=== PATIENT | female | born 1960 | race Caucasian/White ===

== ENCOUNTER 2016-07-17 17:25 | Inpatient (IN) | payer MEDICARE ==
[~2016-07-17] VITALS: Ht 157.5 cm; Wt 75.7 kg
[~2016-07-17 17:25] MED LIST: HYDR50TA3 PO; LEVO25TA7 PO; LOSA1TAB35 PO; OMEP20CA10 PO; POTA20TA83 PO; ZOLP10TA2 PO
[2016-07-17] MEDS ORDERED: IV NS 0.9% 1,000 ML BAG IV ONE (19:00)
[2016-07-17] MEDS ORDERED: VANCOMYCIN 1 GM in IV D5W 250 ML IV ONE (19:00)
[2016-07-17] MEDS ORDERED: PIPERACILLIN /TAZOBACTAM 3.375 G in IV D5W 50 ML IV ONE (19:00)
[2016-07-17] MEDS ORDERED: MORPHINE SULFATE INJ 4 MG/ML DISP.SYRIN ONE ×2 (19:14→22:25)
[2016-07-17] MEDS ORDERED: IV SET PRIMARY PUMP SET 1 EA INFUS.SET MC ONE (19:15)
[2016-07-17] MEDS ORDERED: ONDANSETRON HCL/PF 4 MG/2 ML VIAL ONE (19:15)
[2016-07-17] MEDS ORDERED: IV NS 0.9% 1,000 ML ONE (19:15)
[2016-07-17] MEDS ORDERED: HYDROMORPHONE 1 MG/1 ML DISP.SYRIN ONE (19:20)
[2016-07-17 19:25] LABS: BASOPHILS # (AUTO) 0.2 /CMM (0.0-0.2); BASOPHILS % (AUTO) 1.4 % (0.0-2.0); DIFF TOTAL % 100 %; EOSINOPHILS # (AUTO) 0.1 /CMM (0.0-0.7); HEMATOCRIT 28 % (33-45); LYMPHOCYTES % (AUTO) 14.8 % (20.0-44.0); MEAN CORPUSCULAR HEMOGLOBIN 24 PG (26.0-33.0); MEAN CORPUSCULAR HGB CONC 32 g/dl (31.0-36.0); MEAN CORPUSCULAR VOLUME 75 fL (82-100); MONOCYTES # (AUTO) 0.6 /CMM (0.1-1.30); MONOCYTES % (AUTO) 4.5 % (2.0-12.0); NEUTROPHILS # (AUTO) 10.5 /CMM (1.8-8.9); NEUTROPHILS % (AUTO) 78.3 % (43.0-81.0); PLATELET COUNT (AUTO) 628 /CMM (150-450); RED BLOOD CELL COUNT(AUTO) 3.75 MIL/uL (4.0-5.2); WHITE BLOOD COUNT (AUTO) 13.4 K/uL (4.3-11.0)
[2016-07-17] MEDS ORDERED: ONDANSETRON HCL/PF 4 MG/2 ML VIAL IVP ONE (19:30)
[2016-07-17] MEDS ORDERED: HYDROMORPHONE INJ 2 MG/ML DISP.SYRIN IV ONE (19:30)
[2016-07-17 19:37] LABS: CALCIUM, SERUM 9.2 mg/dL (8.5-10.1); CREATININE 0.9 mg/dL (0.6-1.3); POTASSIUM 3.7 mmol/L (3.5-5.1)
[2016-07-17] MEDS ORDERED: LORAZEPAM INJ 2 MG/ML VIAL ONE (19:38)
[2016-07-17 19:43] LABS: ALBUMIN 2.9 g/dL (3.4-5.0); BILIRUBIN,DIRECT 0.1 mg/dL (0.0-0.2); BILIRUBIN,TOTAL 0.4 mg/dL (0.2-1.0); INDIRECT BILIRUBIN 0.3 mg/dL (0.0-1.1); TOTAL PROTEIN, SERUM 8.2 g/dL (6.4-8.2)
[2016-07-17] MEDS ORDERED: LORAZEPAM INJ 2 MG/ML VIAL IV ONE (20:00)
[2016-07-17 20:05] LABS: LACTIC ACID 0.7 mmol/L (0.4-2.0)
[2016-07-17 21:00] VITALS: BP_SYST 160; BP_SYST 175; BP_DIAS 118; BP_DIAS 90
[2016-07-17 22:00] VITALS: BP 160/95
[2016-07-17] MEDS ORDERED: MAGNESIUM HYDROXIDE 30 ML UDC PO PRN (22:00)
[2016-07-17] MEDS ORDERED: Z GUARD REMEDY 2 OZ OINT TP PRN (22:00)
[2016-07-17] MEDS ORDERED: MORPHINE SULFATE INJ 2 MG/ML DISP.SYRIN IV PRN ×2 (22:00→23:00)
[2016-07-17] MEDS ORDERED: ZOLPIDEM TARTRATE 5 MG TABLET PO PRN (22:00)
[2016-07-17] MEDS ORDERED: ONDANSETRON HCL/PF 4 MG/2 ML VIAL IVP PRN (22:00)
[2016-07-17] MEDS ORDERED: MAG HYDROX/AL HYDROX/SIMETH 30 ML UDC PO PRN (22:00)
[2016-07-17] MEDS ORDERED: ENOXAPARIN SODIUM 40 MG/0.4 ML DISP.SYRIN SQ ONE (22:25)
[2016-07-17] MEDS: ENOXAPARIN SODIUM 40 MG/0.4 ML DISP.SYRIN SQ SCH (22:33)
[2016-07-17] MEDS ORDERED: HYDROCODONE/APAP 5/325MG 1 EACH TABLET ONE (23:51)
[2016-07-17] MEDS ORDERED: ZOLPIDEM TARTRATE 5 MG TABLET ONE (23:52)
[2016-07-17] MEDS: HYDROCODONE/APAP 5/325MG 1 EACH TABLET PO PRN (23:58)
[2016-07-18] MEDS ORDERED: HYDROMORPHONE 1 MG/1 ML DISP.SYRIN ONE ×2 (01:02→04:44)
[2016-07-18] MEDS: HYDROMORPHONE 1 MG/1 ML DISP.SYRIN IV PRN ×5 (01:07→21:02)
[2016-07-18] MEDS ORDERED: PIPERACILLIN /TAZOBACTAM 3.375 G VIAL IV ONE (04:43)
[2016-07-18] MEDS ORDERED: IV D5W 100 ML IV ONE (04:43)
[2016-07-18] MEDS ORDERED: hydrALAZINE HCL 10 MG TABLET ONE (04:44)
[2016-07-18] MEDS ORDERED: SECONDARY IV SET 1 EA INFUS.SET MC ONE ×2 (04:48→12:16)
[2016-07-18] MEDS ORDERED: IV SET PRIMARY PUMP SET 1 EA INFUS.SET MC ONE (04:48)
[2016-07-18] MEDS ORDERED: IV NS 0.9% 250 ML IV ONE (04:49)
[2016-07-18] MEDS ORDERED: hydrALAZINE HCL 10 MG TABLET PO PRN (05:00)
[2016-07-18] MEDS ORDERED: PIPERACILLIN /TAZOBACTAM 3.375 G in IV D5W 100 ML IV SCH (05:00)
[2016-07-18 07:19] LABS: BASOPHILS # (AUTO) 0.1 /CMM (0.0-0.2); BASOPHILS % (AUTO) 1.2 % (0.0-2.0); DIFF TOTAL % 100 %; EOSINOPHILS # (AUTO) 0.1 /CMM (0.0-0.7); EOSINOPHILS % (AUTO) 1.2 % (0.0-6.0); HEMATOCRIT 27 % (33-45); HEMOGLOBIN 8.7 g/dL (11.5-14.8); LYMPHOCYTES # (AUTO) 1.2 /CMM (0.8-4.8); LYMPHOCYTES % (AUTO) 11.8 % (20.0-44.0); MEAN CORPUSCULAR HEMOGLOBIN 24 PG (26.0-33.0); MEAN CORPUSCULAR HGB CONC 32 g/dl (31.0-36.0); MEAN CORPUSCULAR VOLUME 75 fL (82-100); MONOCYTES # (AUTO) 0.4 /CMM (0.1-1.30); NEUTROPHILS # (AUTO) 8.6 /CMM (1.8-8.9); NEUTROPHILS % (AUTO) 81.8 % (43.0-81.0); PLATELET COUNT (AUTO) 567 /CMM (150-450); RED BLOOD CELL COUNT(AUTO) 3.61 MIL/uL (4.0-5.2); WHITE BLOOD COUNT (AUTO) 10.5 K/uL (4.3-11.0)
[2016-07-18 07:51] LABS: ALBUMIN 2.5 g/dL (3.4-5.0); BILIRUBIN,TOTAL 0.3 mg/dL (0.2-1.0); CALCIUM, SERUM 8.8 mg/dL (8.5-10.1); CREATININE 0.7 mg/dL (0.6-1.3); PHOSPHORUS 3.1 mg/dL (2.5-4.9); POTASSIUM 3.4 mmol/L (3.5-5.1); TOTAL PROTEIN, SERUM 7.6 g/dL (6.4-8.2)
[2016-07-18 08:00] VITALS: BP 172/109
[2016-07-18] MEDS: HYDROCODONE/APAP 5/325MG 1 EACH TABLET PO PRN ×4 (08:22→23:14)
[2016-07-18] MEDS: IV NS 0.9% 1,000 ML IV PRN (08:23)
[2016-07-18] MEDS: PANTOPRAZOLE 40 MG TABLET.DR PO SCH (08:23)
[2016-07-18] MEDS: POTASSIUM CHLORIDE 20 MEQ TAB.PRT.SR PO SCH ×2 (08:24→17:55)
[2016-07-18] MEDS: LEVOTHYROXINE SODIUM 25 MCG TABLET PO SCH (08:24)
[2016-07-18] MEDS ORDERED: FEE PK DOSING 1 MIN EA MC ONE (10:15)
[2016-07-18] MEDS: HYDROCHLOROTHIAZIDE 25 MG TABLET PO SCH (10:45)
[2016-07-18 11:06] LABS: THYROID STIMULATING HORMONE 0.849 uIU/mL (0.358-3.74)
[2016-07-18] MEDS: VANCOMYCIN 1 GM in IV D5W 250 ML IV SCH (12:12)
[2016-07-18] MEDS ORDERED: TRIA1TAB5 PO (12:33)
[2016-07-18] MEDS ORDERED: LOSA1TAB39 PO (12:34)
[2016-07-18] MEDS ORDERED: VENL37.55 PO (12:35)
[2016-07-18] MEDS ORDERED: POTA20TA83 PO (12:36)
[2016-07-18] MEDS ORDERED: LEVO125T8 PO (12:37)
[2016-07-18] MEDS ORDERED: DOCU-25 PO (12:41)
[2016-07-18] MEDS ORDERED: [UNRECOGNIZED DRUG - CODE] PO (12:42)
[2016-07-18] MEDS: PIPERACILLIN /TAZOBACTAM 3.375 G in IV D5W 50 ML IV SCH ×3 (14:26→23:14)
[2016-07-18] MEDS: CADEXOMER IODINE 40 GM TUBE TP SCH (14:27)
[2016-07-18 16:00] VITALS: BP 164/92
[2016-07-18] MEDS: LOSARTAN/HCTZ 50-12.5MG/ 1 EA TABLET PO SCH (16:24)
[2016-07-18] MEDS ORDERED: ZOLPIDEM TARTRATE 10 MG TABLET PO SCH (18:00)
[2016-07-18 20:00] VITALS: BP 152/97
[2016-07-18] MEDS: ENOXAPARIN SODIUM 40 MG/0.4 ML DISP.SYRIN SQ SCH (21:03)
[2016-07-19] MEDS: VANCOMYCIN 1 GM in IV D5W 250 ML IV SCH ×2 (00:11→10:45)
[2016-07-19] MEDS: ZOLPIDEM TARTRATE 10 MG TABLET PO PRN (00:26)
[2016-07-19] MEDS: HYDROMORPHONE 1 MG/1 ML DISP.SYRIN IV PRN ×4 (03:21→20:24)
[2016-07-19] MEDS: HYDROCODONE/APAP 5/325MG 1 EACH TABLET PO PRN ×3 (04:24→13:13)
[2016-07-19] MEDS: PIPERACILLIN /TAZOBACTAM 3.375 G in IV D5W 50 ML IV SCH ×3 (06:05→18:18)
[2016-07-19] MEDS: ACETAMINOPHEN 325 MG TABLET PO PRN (06:06)
[2016-07-19] MEDS: IV NS 0.9% 1,000 ML IV PRN (06:12)
[2016-07-19 07:31] LABS: CALCIUM, SERUM 8.8 mg/dL (8.5-10.1); CREATININE 0.7 mg/dL (0.6-1.3); POTASSIUM 3.5 mmol/L (3.5-5.1)
[2016-07-19 08:00] VITALS: BP 170/96
[2016-07-19 08:10] VITALS: BP 170/96
[2016-07-19] MEDS: POTASSIUM CHLORIDE 20 MEQ TAB.PRT.SR PO SCH ×2 (08:12→16:51)
[2016-07-19] MEDS: PANTOPRAZOLE 40 MG TABLET.DR PO SCH (08:12)
[2016-07-19] MEDS: LEVOTHYROXINE SODIUM 25 MCG TABLET PO SCH (08:12)
[2016-07-19] MEDS: HYDROCHLOROTHIAZIDE 25 MG TABLET PO SCH (08:13)
[2016-07-19] MEDS: LOSARTAN/HCTZ 50-12.5MG/ 1 EA TABLET PO SCH (08:13)
[2016-07-19] MEDS: CADEXOMER IODINE 40 GM TUBE TP SCH (08:14)
[2016-07-19 16:00] VITALS: BP 162/91
[2016-07-19] MEDS ORDERED: NORTRIPTYLINE HCL 10 MG CAPSULE PO SCH (16:00)
[2016-07-19] MEDS ORDERED: SECONDARY IV SET 1 EA INFUS.SET MC ONE (16:42)
[2016-07-19] MEDS: LACTOBACILLUS RHAMNOSUS GG 1 EACH CAP.SPRINK PO SCH (16:50)
[2016-07-19] MEDS: PREGABALIN 25 MG CAPSULE PO SCH (16:50)
[2016-07-19] MEDS: SOD FERRIC GLUC 125 MG in IV NS 0.9% 100 ML IV SCH (16:51)
[2016-07-19] MEDS: ALPRAZOLAM 0.25 MG TABLET PO SCH (16:55)
[2016-07-19 20:00] VITALS: BP 147/90
[2016-07-19] MEDS: ENOXAPARIN SODIUM 40 MG/0.4 ML DISP.SYRIN SQ SCH (22:00)
[2016-07-19] MEDS: NORTRIPTYLINE HCL 10 MG CAPSULE PO SCH (22:03)
[2016-07-19] MEDS: oxyCODONE/APAP (5/325 MG) 1 UDTAB TABLET PO PRN (22:05)
[2016-07-20] MEDS: VANCOMYCIN 1 GM in IV D5W 250 ML IV SCH ×3 (00:04→23:52)
[2016-07-20] MEDS: HYDROMORPHONE 1 MG/1 ML DISP.SYRIN IV PRN ×4 (00:26→17:42)
[2016-07-20] MEDS: PIPERACILLIN /TAZOBACTAM 3.375 G in IV D5W 50 ML IV SCH ×4 (01:32→19:04)
[2016-07-20] MEDS: oxyCODONE IR immediate release 5 MG CAPSULE PO PRN (05:35)
[2016-07-20] MEDS: IV NS 0.9% 1,000 ML IV PRN (05:44)
[2016-07-20 07:49] LABS: CALCIUM, SERUM 9.2 mg/dL (8.5-10.1); CREATININE 0.8 mg/dL (0.6-1.3); POTASSIUM 3.6 mmol/L (3.5-5.1)
[2016-07-20 08:00] VITALS: BP 167/88
[2016-07-20] MEDS: PREGABALIN 25 MG CAPSULE PO SCH ×2 (09:00→17:28)
[2016-07-20] MEDS: POTASSIUM CHLORIDE 20 MEQ TAB.PRT.SR PO SCH ×2 (09:00→17:28)
[2016-07-20] MEDS: ALPRAZOLAM 0.25 MG TABLET PO SCH ×2 (09:00→17:00)
[2016-07-20] MEDS ORDERED: VENLAFAXINE XR 37.5 MG CAP.SR.24H PO SCH (09:00)
[2016-07-20] MEDS: LACTOBACILLUS RHAMNOSUS GG 1 EACH CAP.SPRINK PO SCH ×2 (09:00→17:28)
[2016-07-20] MEDS: CADEXOMER IODINE 40 GM TUBE TP SCH (09:00)
[2016-07-20] MEDS: LOSARTAN/HCTZ 50-12.5MG/ 1 EA TABLET PO SCH (09:28)
[2016-07-20 10:00] VITALS: BP 167/88
[2016-07-20] MEDS ORDERED: HYDROMORPHONE 1 MG/1 ML DISP.SYRIN IV ONE (11:00)
[2016-07-20] MEDS ORDERED: FENTANYL PF 100MCG/2ML AMPUL ONE (11:11)
[2016-07-20] MEDS ORDERED: MIDAZOLAM HCL 2 MG/2ML VIAL ONE (11:11)
[2016-07-20] MEDS ORDERED: KETAMINE HCL (500MG/10ML) 50 MG/ML VIAL ONE (11:12)
[2016-07-20] MEDS ORDERED: BUPIVACAINE MPF 0.5% W/EPI INJ 30 ML VIAL ONE (11:32)
[2016-07-20] MEDS ORDERED: POVIDONE-IODINE OINT 28.4 GM TUBE ONE (12:38)
[2016-07-20] MEDS ORDERED: HYDROMORPHONE INJ 2 MG/ML DISP.SYRIN ONE (12:51)
[2016-07-20 13:30] VITALS: BP 141/86
[2016-07-20] MEDS: LEVOTHYROXINE SODIUM 25 MCG TABLET PO SCH (13:56)
[2016-07-20] MEDS: PANTOPRAZOLE 40 MG TABLET.DR PO SCH (13:56)
[2016-07-20] MEDS: HYDROCHLOROTHIAZIDE 25 MG TABLET PO SCH (13:57)
[2016-07-20] MEDS ORDERED: SOD FERRIC GLUC 125 MG in IV NS 0.9% 100 ML IV SCH (14:00)
[2016-07-20] MEDS: oxyCODONE/APAP (5/325 MG) 1 UDTAB TABLET PO PRN ×2 (14:18→21:43)
[2016-07-20] MEDS ORDERED: ANESTHESIA TRAY IN PYXIS 1 EA TRAY MC ONE (15:06)
[2016-07-20] MEDS: SOD FERRIC GLUC 125 MG in IV NS 0.9% 100 ML IV SCH (15:54)
[2016-07-20 16:11] VITALS: BP 123/70
[2016-07-20 18:00] VITALS: BP 123/70
[2016-07-20 20:21] VITALS: BP 124/74
[2016-07-20] MEDS: ZOLPIDEM TARTRATE 10 MG TABLET PO PRN (21:42)
[2016-07-20] MEDS: NORTRIPTYLINE HCL 10 MG CAPSULE PO SCH (21:43)
[2016-07-20] MEDS: ENOXAPARIN SODIUM 40 MG/0.4 ML DISP.SYRIN SQ SCH (21:44)
[2016-07-21] MEDS: PIPERACILLIN /TAZOBACTAM 3.375 G in IV D5W 50 ML IV SCH ×3 (00:57→13:08)
[2016-07-21] MEDS: HYDROMORPHONE 1 MG/1 ML DISP.SYRIN IV PRN ×5 (03:05→20:48)
[2016-07-21] MEDS: oxyCODONE/APAP (5/325 MG) 1 UDTAB TABLET PO PRN ×2 (06:51→15:25)
[2016-07-21 08:00] VITALS: BP_SYST 163; BP_DIAS 90; BP_DIAS 94
[2016-07-21 08:01] LABS: CALCIUM, SERUM 8.9 mg/dL (8.5-10.1); CREATININE 0.9 mg/dL (0.6-1.3); POTASSIUM 4.4 mmol/L (3.5-5.1)
[2016-07-21] MEDS: LACTOBACILLUS RHAMNOSUS GG 1 EACH CAP.SPRINK PO SCH ×2 (08:56→17:22)
[2016-07-21] MEDS: POTASSIUM CHLORIDE 20 MEQ TAB.PRT.SR PO SCH ×2 (08:56→17:23)
[2016-07-21] MEDS: LEVOTHYROXINE SODIUM 25 MCG TABLET PO SCH (08:56)
[2016-07-21] MEDS: PANTOPRAZOLE 40 MG TABLET.DR PO SCH (08:57)
[2016-07-21] MEDS: PREGABALIN 25 MG CAPSULE PO SCH ×2 (08:57→17:22)
[2016-07-21] MEDS: LOSARTAN/HCTZ 50-12.5MG/ 1 EA TABLET PO SCH (08:58)
[2016-07-21] MEDS: HYDROCHLOROTHIAZIDE 25 MG TABLET PO SCH (08:58)
[2016-07-21] MEDS: CADEXOMER IODINE 40 GM TUBE TP SCH (08:59)
[2016-07-21] MEDS: ALPRAZOLAM 0.25 MG TABLET PO SCH ×2 (08:59→17:24)
[2016-07-21] MEDS: oxyCODONE IR immediate release 5 MG CAPSULE PO PRN ×4 (09:06→22:20)
[2016-07-21] MEDS: VANCOMYCIN 1 GM in IV D5W 250 ML IV SCH ×2 (11:42→23:19)
[2016-07-21] MEDS ORDERED: SECONDARY IV SET 1 EA INFUS.SET MC ONE ×2 (11:45→15:25)
[2016-07-21] MEDS: SOD FERRIC GLUC 125 MG in IV NS 0.9% 100 ML IV SCH (15:22)
[2016-07-21 16:00] VITALS: BP 161/93
[2016-07-21] MEDS: ACETAMINOPHEN 325 MG TABLET PO PRN (16:25)
[2016-07-21] MEDS: LEVOFLOXACIN (500MG) 500 MG TABLET PO SCH (20:20)
[2016-07-21 22:02] VITALS: BP 144/79
[2016-07-21] MEDS: NORTRIPTYLINE HCL 25 MG CAPSULE PO SCH (22:15)
[2016-07-21] MEDS: ENOXAPARIN SODIUM 40 MG/0.4 ML DISP.SYRIN SQ SCH (22:18)
[2016-07-22] MEDS: HYDROMORPHONE 1 MG/1 ML DISP.SYRIN IV PRN ×4 (00:40→17:33)
[2016-07-22] MEDS: oxyCODONE IR immediate release 5 MG CAPSULE PO PRN ×4 (02:43→20:03)
[2016-07-22 08:00] VITALS: BP 142/88
[2016-07-22 08:00] LABS: CALCIUM, SERUM 9.2 mg/dL (8.5-10.1); CREATININE 0.8 mg/dL (0.6-1.3); POTASSIUM 3.7 mmol/L (3.5-5.1)
[2016-07-22] MEDS: ALBUTEROL FS 2.5 MG/3 ML VIAL.NEB NEB PRN (08:20)
[2016-07-22] MEDS: LEVOTHYROXINE SODIUM 25 MCG TABLET PO SCH (08:49)
[2016-07-22] MEDS: LACTOBACILLUS RHAMNOSUS GG 1 EACH CAP.SPRINK PO SCH ×2 (08:49→16:20)
[2016-07-22] MEDS: PREGABALIN 25 MG CAPSULE PO SCH ×2 (08:50→16:19)
[2016-07-22] MEDS: POTASSIUM CHLORIDE 20 MEQ TAB.PRT.SR PO SCH ×2 (08:50→16:20)
[2016-07-22] MEDS: PANTOPRAZOLE 40 MG TABLET.DR PO SCH (08:50)
[2016-07-22] MEDS: HYDROCHLOROTHIAZIDE 25 MG TABLET PO SCH (08:50)
[2016-07-22] MEDS: LOSARTAN/HCTZ 50-12.5MG/ 1 EA TABLET PO SCH (08:51)
[2016-07-22] MEDS: ALPRAZOLAM 0.25 MG TABLET PO SCH ×2 (08:53→16:19)
[2016-07-22] MEDS: CADEXOMER IODINE 40 GM TUBE TP SCH (08:54)
[2016-07-22] MEDS: ACETAMINOPHEN 325 MG TABLET PO PRN ×2 (10:20→17:15)
[2016-07-22] MEDS: VANCOMYCIN 1 GM in IV D5W 250 ML IV SCH ×2 (10:20→23:56)
[2016-07-22] MEDS: DOCUSATE SODIUM 250 MG CAPSULE PO SCH ×2 (11:09→16:19)
[2016-07-22] MEDS: SOD FERRIC GLUC 125 MG in IV NS 0.9% 100 ML IV SCH (14:46)
[2016-07-22 16:00] VITALS: BP_SYST 143; BP_DIAS 83; BP_DIAS 89
[2016-07-22 20:00] VITALS: BP 148/76
[2016-07-22] MEDS: NORTRIPTYLINE HCL 25 MG CAPSULE PO SCH (21:12)
[2016-07-22] MEDS: LEVOFLOXACIN (500MG) 500 MG TABLET PO SCH (21:12)
[2016-07-22] MEDS: ENOXAPARIN SODIUM 40 MG/0.4 ML DISP.SYRIN SQ SCH (21:21)
[2016-07-23] MEDS: oxyCODONE IR immediate release 5 MG CAPSULE PO PRN ×3 (01:04→21:20)
[2016-07-23] MEDS: HYDROMORPHONE 1 MG/1 ML DISP.SYRIN IV PRN ×4 (04:29→23:59)
[2016-07-23] MEDS: ALBUTEROL FS 2.5 MG/3 ML VIAL.NEB NEB PRN ×3 (05:24→16:12)
[2016-07-23 08:00] VITALS: BP 145/102
[2016-07-23 08:04] LABS: CALCIUM, SERUM 8.9 mg/dL (8.5-10.1); CREATININE 0.8 mg/dL (0.6-1.3); POTASSIUM 3.5 mmol/L (3.5-5.1)
[2016-07-23] MEDS: PANTOPRAZOLE 40 MG TABLET.DR PO SCH (08:51)
[2016-07-23] MEDS: PREGABALIN 25 MG CAPSULE PO SCH ×2 (08:51→17:00)
[2016-07-23] MEDS: DOCUSATE SODIUM 250 MG CAPSULE PO SCH ×2 (08:51→17:00)
[2016-07-23] MEDS: LACTOBACILLUS RHAMNOSUS GG 1 EACH CAP.SPRINK PO SCH ×2 (08:51→17:00)
[2016-07-23] MEDS: HYDROCHLOROTHIAZIDE 25 MG TABLET PO SCH (08:52)
[2016-07-23] MEDS: POTASSIUM CHLORIDE 20 MEQ TAB.PRT.SR PO SCH ×2 (08:52→17:00)
[2016-07-23] MEDS: LEVOTHYROXINE SODIUM 25 MCG TABLET PO SCH (08:53)
[2016-07-23] MEDS: LOSARTAN/HCTZ 50-12.5MG/ 1 EA TABLET PO SCH (08:53)
[2016-07-23] MEDS: CADEXOMER IODINE 40 GM TUBE TP SCH (09:00)
[2016-07-23] MEDS: ALPRAZOLAM 0.25 MG TABLET PO SCH ×2 (09:06→17:00)
[2016-07-23] MEDS: VANCOMYCIN 1 GM in IV D5W 250 ML IV SCH ×2 (12:42→23:57)
[2016-07-23] MEDS: SOD FERRIC GLUC 125 MG in IV NS 0.9% 100 ML IV SCH (14:42)
[2016-07-23 16:00] VITALS: BP 114/81
[2016-07-23 20:00] VITALS: BP 128/67
[2016-07-23] MEDS: LEVOFLOXACIN (500MG) 500 MG TABLET PO SCH (21:19)
[2016-07-23] MEDS: NORTRIPTYLINE HCL 25 MG CAPSULE PO SCH (21:19)
[2016-07-23] MEDS: ENOXAPARIN SODIUM 40 MG/0.4 ML DISP.SYRIN SQ SCH (21:21)
[2016-07-24] MEDS: oxyCODONE IR immediate release 5 MG CAPSULE PO PRN ×3 (01:34→20:14)
[2016-07-24] MEDS: oxyCODONE/APAP (5/325 MG) 1 UDTAB TABLET PO PRN ×3 (02:48→17:03)
[2016-07-24] MEDS: HYDROMORPHONE 1 MG/1 ML DISP.SYRIN IV PRN ×4 (04:53→22:20)
[2016-07-24 07:53] LABS: BASOPHILS % (AUTO) 0.1 % (0.0-2.0); DIFF TOTAL % 100 %; EOSINOPHILS # (AUTO) 0.1 /CMM (0.0-0.7); EOSINOPHILS % (AUTO) 2.5 % (0.0-6.0); HEMATOCRIT 27 % (33-45); HEMOGLOBIN 8.4 g/dL (11.5-14.8); LYMPHOCYTES # (AUTO) 0.8 /CMM (0.8-4.8); LYMPHOCYTES % (AUTO) 14.4 % (20.0-44.0); MEAN CORPUSCULAR HEMOGLOBIN 23 PG (26.0-33.0); MEAN CORPUSCULAR HGB CONC 31 g/dl (31.0-36.0); MEAN CORPUSCULAR VOLUME 75 fL (82-100); MONOCYTES # (AUTO) 0.5 /CMM (0.1-1.30); MONOCYTES % (AUTO) 9.3 % (2.0-12.0); NEUTROPHILS % (AUTO) 73.7 % (43.0-81.0); PLATELET COUNT (AUTO) 491 /CMM (150-450); RED BLOOD CELL COUNT(AUTO) 3.58 MIL/uL (4.0-5.2); WHITE BLOOD COUNT (AUTO) 5.4 K/uL (4.3-11.0)
[2016-07-24 08:00] VITALS: BP 140/66
[2016-07-24 08:22] LABS: CALCIUM, SERUM 8.4 mg/dL (8.5-10.1); CREATININE 0.9 mg/dL (0.6-1.3)
[2016-07-24 08:37] VITALS: BP 140/66
[2016-07-24] MEDS: ALPRAZOLAM 0.25 MG TABLET PO SCH ×2 (09:00→17:03)
[2016-07-24] MEDS: CADEXOMER IODINE 40 GM TUBE TP SCH (09:00)
[2016-07-24] MEDS: POTASSIUM CHLORIDE 20 MEQ TAB.PRT.SR PO SCH ×2 (09:29→17:02)
[2016-07-24] MEDS: DOCUSATE SODIUM 250 MG CAPSULE PO SCH ×2 (09:29→17:02)
[2016-07-24] MEDS: PREGABALIN 25 MG CAPSULE PO SCH ×2 (09:29→17:02)
[2016-07-24] MEDS: LACTOBACILLUS RHAMNOSUS GG 1 EACH CAP.SPRINK PO SCH ×2 (09:29→17:02)
[2016-07-24] MEDS: PANTOPRAZOLE 40 MG TABLET.DR PO SCH (09:29)
[2016-07-24] MEDS: LEVOTHYROXINE SODIUM 25 MCG TABLET PO SCH (09:29)
[2016-07-24] MEDS: HYDROCHLOROTHIAZIDE 25 MG TABLET PO SCH (09:30)
[2016-07-24] MEDS: LOSARTAN/HCTZ 50-12.5MG/ 1 EA TABLET PO SCH (09:30)
[2016-07-24] MEDS: VANCOMYCIN 1 GM in IV D5W 250 ML IV SCH (11:42)
[2016-07-24] MEDS ORDERED: POTASSIUM CHLORIDE 20 MEQ POWDER PACKET PO ONE (12:00)
[2016-07-24 16:00] VITALS: BP_SYST 155; BP_DIAS 86; BP_DIAS 88
[2016-07-24] MEDS: ACETAMINOPHEN 325 MG TABLET PO PRN (17:02)
[2016-07-24 20:00] VITALS: BP 127/74
[2016-07-24] MEDS: LEVOFLOXACIN (500MG) 500 MG TABLET PO SCH (20:13)
[2016-07-24] MEDS: NORTRIPTYLINE HCL 25 MG CAPSULE PO SCH (22:19)
[2016-07-24] MEDS: ENOXAPARIN SODIUM 40 MG/0.4 ML DISP.SYRIN SQ SCH (22:20)
[2016-07-25] MEDS: VANCOMYCIN 1 GM in IV D5W 250 ML IV SCH ×2 (00:21→10:56)
[2016-07-25] MEDS: oxyCODONE/APAP (5/325 MG) 1 UDTAB TABLET PO PRN ×2 (00:22→18:16)
[2016-07-25] MEDS: oxyCODONE IR immediate release 5 MG CAPSULE PO PRN ×3 (03:06→16:09)
[2016-07-25] MEDS: HYDROMORPHONE 1 MG/1 ML DISP.SYRIN IV PRN ×2 (07:17→14:23)
[2016-07-25 08:00] VITALS: BP 128/87
[2016-07-25] MEDS: PANTOPRAZOLE 40 MG TABLET.DR PO SCH (08:48)
[2016-07-25] MEDS: PREGABALIN 25 MG CAPSULE PO SCH ×2 (08:48→18:14)
[2016-07-25] MEDS: DOCUSATE SODIUM 250 MG CAPSULE PO SCH ×2 (08:48→18:14)
[2016-07-25] MEDS: LACTOBACILLUS RHAMNOSUS GG 1 EACH CAP.SPRINK PO SCH ×2 (08:48→18:14)
[2016-07-25] MEDS: ALPRAZOLAM 0.25 MG TABLET PO SCH ×2 (08:49→18:14)
[2016-07-25] MEDS: HYDROCHLOROTHIAZIDE 25 MG TABLET PO SCH (08:49)
[2016-07-25] MEDS: POTASSIUM CHLORIDE 20 MEQ TAB.PRT.SR PO SCH ×2 (08:49→18:14)
[2016-07-25] MEDS: LEVOTHYROXINE SODIUM 25 MCG TABLET PO SCH (08:49)
[2016-07-25] MEDS: LOSARTAN/HCTZ 50-12.5MG/ 1 EA TABLET PO SCH (08:50)
[2016-07-25] MEDS: CADEXOMER IODINE 40 GM TUBE TP SCH (08:50)
[2016-07-25] MEDS ORDERED: POTASSIUM CHLORIDE 20 MEQ TAB.PRT.SR PO ONE (13:30)
[2016-07-25] MEDS ORDERED: LACT1CAP72 PO (13:40)
[2016-07-25] MEDS ORDERED: Nortriptyline Hcl PO (13:40)
[2016-07-25] MEDS ORDERED: OXYC1TAB8 PO (13:40)
[2016-07-25] MEDS ORDERED: Oxycodone Hcl PO (13:40)
[2016-07-25] MEDS ORDERED: PREG25CA PO (13:40)
[2016-07-25 16:10] VITALS: BP 133/82
[2016-07-25] MEDS ORDERED: LEVO500T15 PO (16:54)
== END 2016-07-25 19:01 | DRG 579 ==
LOC: EDUNIT# 17:25 → ER 17:27 → MED 20:37
PROVIDERS: ADMIT Family Medicine; ATTEND Family Medicine
PROC: 0QBQ0ZZ Excision of Right Toe Phalanx, Open Approach (ICD-10-PCS; principal; 2016-07-18)
PROC: 05H633Z Insertion of Infusion Device into Left Subclavian Vein, Percutaneous Approach (ICD-10-PCS; 2016-07-19)
PROC: 0Y6P0Z3 Detachment at Right 1st Toe, Low, Open Approach (ICD-10-PCS; 2016-07-20)
DX: L03.031 Cellulitis of right toe (principal); E43 Unspecified severe protein-calorie malnutrition; M86.179 Other acute osteomyelitis, unspecified ankle and foot; Z86.14 Personal history of Methicillin resistant Staphylococcus aureus infection; Z89.512 Acquired absence of left leg below knee; I25.10 Atherosclerotic heart disease of native coronary artery without angina pectoris; Q05.9 Spina bifida, unspecified; M79.7 Fibromyalgia; E87.6 Hypokalemia; I10 Essential (primary) hypertension; B95.62 Methicillin resistant Staphylococcus aureus infection as the cause of diseases classified elsewhere; E78.5 Hyperlipidemia, unspecified; M19.90 Unspecified osteoarthritis, unspecified site; D64.9 Anemia, unspecified; D47.3 Essential (hemorrhagic) thrombocythemia; Z68.30 Body mass index [BMI] 30.0-30.9, adult; G89.4 Chronic pain syndrome; K59.09 Other constipation; F32.9 Major depressive disorder, single episode, unspecified; E03.9 Hypothyroidism, unspecified; E66.9 Obesity, unspecified; L97.519 Non-pressure chronic ulcer of other part of right foot with unspecified severity
CPT/HCPCS: 36415; 36569; 71010-TC; 73110; 73630-TC; 73718-TC; 80048-TC; 80053-TC; 80076-TC; 80202-TC; 83540-TC; 83605-TC; 83735-TC; 84100-TC; 84443-TC; 85025-TC; 87040-TC; 87070-TC; 87075-TC; 87081-TC; 87186-TC; 88304-TC; 88305-TC; 88311-TC; 88312-TC; 97001-TC; 97110-TC; 97530-TC; A4606; A6402; A6403; J1170; J1650; J2060; J2250; J2270; J2405; J2543; J2916; J3010; J3370; J3490; J7030; J7050; J7060; Z7610

== ENCOUNTER 2016-07-28 09:10 | Outpatient (CLI) | payer MEDICARE ==
[~2016-07-28 09:10] MED LIST changes: +DOCU-25 PO; -HYDR50TA3 PO; +LACT1CAP72 PO; +LEVO125T8 PO; -LEVO25TA7 PO; +LEVO500T15 PO; -LOSA1TAB35 PO; +LOSA1TAB39 PO; +Nortriptyline Hcl PO; +OXYC-28 PO; +OXYC1TAB8 PO; +Oxycodone Hcl PO; +PREG25CA PO; +TRIA1TAB5 PO; +VENL37.55 PO
== END 2016-07-28 23:59 ==
LOC: WOU 09:10
PROVIDERS: ATTEND Podiatrist Foot & Ankle Surgery
DX: Z47.81 Encounter for orthopedic aftercare following surgical amputation (principal); Z89.411 Acquired absence of right great toe; Z87.891 Personal history of nicotine dependence; Z89.512 Acquired absence of left leg below knee; Z98.84 Bariatric surgery status; G90.09 Other idiopathic peripheral autonomic neuropathy; M86.671 Other chronic osteomyelitis, right ankle and foot; M79.641 Pain in right hand; I10 Essential (primary) hypertension
CPT/HCPCS: A6253; A6402; G0463

== ENCOUNTER 2016-07-31 00:46 | Emergency (ER) | payer MEDICARE ==
[~2016-07-31] VITALS: Ht 167.6 cm; Wt 79.4 kg
[2016-07-31] MEDS ORDERED: oxyCODONE/APAP (5/325 MG) 1 UDTAB TABLET ONE (01:47)
[2016-07-31] MEDS ORDERED: oxyCODONE/APAP (5/325 MG) 1 UDTAB TABLET PO ONE (02:00)
[2016-07-31 04:13] VITALS: BP 134/68
== END 2016-07-31 04:13 | disposition home or self-care (01) ==
LOC: ER 00:49
DX: M25.531 Pain in right wrist (principal); G89.4 Chronic pain syndrome; E03.9 Hypothyroidism, unspecified; E66.9 Obesity, unspecified; E78.00 Pure hypercholesterolemia, unspecified; I10 Essential (primary) hypertension; I25.10 Atherosclerotic heart disease of native coronary artery without angina pectoris; Z88.5 Allergy status to narcotic agent; Z88.8 Allergy status to other drugs, medicaments and biological substances; Z91.040 Latex allergy status; Z91.09 Other allergy status, other than to drugs and biological substances
CPT/HCPCS: 73110; A4606; Z7610

== ENCOUNTER 2016-08-03 12:35 | Outpatient (CLI) | payer MEDICARE | END 2016-08-03 23:59 | LOC: WOU 12:35 | PROVIDERS: ATTEND Podiatrist Foot & Ankle Surgery | PROC: 2W3CX1Z Immobilization of Right Lower Arm using Splint (ICD-10-PCS; principal; 2016-08-03) | DX: Z09 Encounter for follow-up examination after completed treatment for conditions other than malignant neoplasm (principal); Z89.411 Acquired absence of right great toe; S63.501D Unspecified sprain of right wrist, subsequent encounter; W19.XXXD Unspecified fall, subsequent encounter; I10 Essential (primary) hypertension; Q05.9 Spina bifida, unspecified; Z89.512 Acquired absence of left leg below knee; G90.09 Other idiopathic peripheral autonomic neuropathy; Z98.84 Bariatric surgery status; K59.00 Constipation, unspecified | CPT/HCPCS: 29125; A6253; A6402; G0463 ==

== ENCOUNTER 2016-09-07 14:55 | Outpatient (CLI) | payer MEDICARE | END 2016-09-07 23:59 | disposition home or self-care (01) | LOC: WOU 14:55 | PROVIDERS: ATTEND Podiatrist Foot & Ankle Surgery | DX: Z09 Encounter for follow-up examination after completed treatment for conditions other than malignant neoplasm (principal); Z89.411 Acquired absence of right great toe; L60.3 Nail dystrophy; G90.09 Other idiopathic peripheral autonomic neuropathy; Z89.512 Acquired absence of left leg below knee; Z87.891 Personal history of nicotine dependence; Z74.09 Other reduced mobility; Q05.9 Spina bifida, unspecified; S63.501D Unspecified sprain of right wrist, subsequent encounter; W19.XXXD Unspecified fall, subsequent encounter | CPT/HCPCS: A6209; G0127; G0463 ==

== ENCOUNTER 2016-10-12 15:10 | Outpatient (CLI) | payer MEDICARE | END 2016-10-12 23:59 | disposition home or self-care (01) | LOC: WOU 15:10 | PROVIDERS: ATTEND Surgery | DX: Z47.81 Encounter for orthopedic aftercare following surgical amputation (principal); Z89.411 Acquired absence of right great toe; G62.9 Polyneuropathy, unspecified; Z89.512 Acquired absence of left leg below knee; L97.513 Non-pressure chronic ulcer of other part of right foot with necrosis of muscle; I10 Essential (primary) hypertension; Z98.84 Bariatric surgery status; Z90.710 Acquired absence of both cervix and uterus; Z90.49 Acquired absence of other specified parts of digestive tract; Z87.891 Personal history of nicotine dependence; Q05.9 Spina bifida, unspecified; Z88.6 Allergy status to analgesic agent; Z91.040 Latex allergy status; S63.501A Unspecified sprain of right wrist, initial encounter; W19.XXXA Unspecified fall, initial encounter; Y92.89 Other specified places as the place of occurrence of the external cause | CPT/HCPCS: 11043; A6402; G0463 ==

== ENCOUNTER 2016-10-19 13:15 | Outpatient (CLI) | payer MEDICARE ==
[2016-10-19 14:30] LABS: BASOPHILS % (AUTO) 0.5 % (0.0-2.0); EOSINOPHILS # (AUTO) 0.1 /CMM (0.0-0.7); EOSINOPHILS % (AUTO) 2.7 % (0.0-6.0); HEMATOCRIT 37 % (33-45); HEMOGLOBIN 12.1 g/dL (11.5-14.8); LYMPHOCYTES # (AUTO) 1.3 /CMM (0.8-4.8); MEAN CORPUSCULAR HEMOGLOBIN 26 PG (26.0-33.0); MEAN CORPUSCULAR HGB CONC 33 g/dl (31.0-36.0); MEAN CORPUSCULAR VOLUME 79 fL (82-100); MONOCYTES # (AUTO) 0.3 /CMM (0.1-1.30); MONOCYTES % (AUTO) 6.7 % (2.0-12.0); NEUTROPHILS # (AUTO) 2.8 /CMM (1.8-8.9); NEUTROPHILS % (AUTO) 62.1 % (43.0-81.0); PLATELET COUNT (AUTO) 389 /CMM (150-450); RDW COEFFICIENT OF VARIATION 16.1 (11.5-15.0); RED BLOOD CELL COUNT(AUTO) 4.68 MIL/uL (4.0-5.2); WHITE BLOOD COUNT (AUTO) 4.5 K/uL (4.3-11.0)
[2016-10-19 14:42] LABS: PREALBUMIN 17.4 MG/DL (18.0-35.7)
[2016-10-19 14:45] LABS: ALBUMIN 3.5 g/dL (3.4-5.0); BILIRUBIN,TOTAL 0.3 mg/dL (0.2-1.0); CREATININE 0.9 mg/dL (0.6-1.3); POTASSIUM 3.8 mmol/L (3.5-5.1); TOTAL PROTEIN, SERUM 7.2 g/dL (6.4-8.2)
[2016-10-19] MEDS ORDERED: GADOVERSETAMIDE 2.5 MMOL/5 ML VIAL IJ ONE (18:31)
[2016-10-19] MEDS ORDERED: GADOVERSETAMIDE 5 MMOL/10 ML VIAL IJ ONE (18:31)
== END 2016-10-19 23:59 | disposition home or self-care (01) ==
LOC: WOU 13:15
PROVIDERS: ATTEND Podiatrist Foot & Ankle Surgery
DX: Z09 Encounter for follow-up examination after completed treatment for conditions other than malignant neoplasm (principal); Z89.411 Acquired absence of right great toe; S91.114A Laceration without foreign body of right lesser toe(s) without damage to nail, initial encounter; X58.XXXA Exposure to other specified factors, initial encounter; Y92.89 Other specified places as the place of occurrence of the external cause; G90.09 Other idiopathic peripheral autonomic neuropathy; Z89.512 Acquired absence of left leg below knee; Z87.891 Personal history of nicotine dependence; Z74.09 Other reduced mobility; Q05.9 Spina bifida, unspecified; Z98.84 Bariatric surgery status; I10 Essential (primary) hypertension; M86.8X7 Other osteomyelitis, ankle and foot
CPT/HCPCS: 11043; 36415; 73720; 80053; 84134; 85025; A6402; A9579 ×2

== ENCOUNTER 2016-10-23 13:13 | Outpatient (CLI) | payer MEDICARE | END 2016-10-23 23:59 | disposition home or self-care (01) | LOC: WOU 13:13 | PROVIDERS: ATTEND Podiatrist Foot & Ankle Surgery | DX: S91.114A Laceration without foreign body of right lesser toe(s) without damage to nail, initial encounter (principal); X58.XXXA Exposure to other specified factors, initial encounter; G90.09 Other idiopathic peripheral autonomic neuropathy; Z89.512 Acquired absence of left leg below knee; Z87.891 Personal history of nicotine dependence; Z74.09 Other reduced mobility; Q05.9 Spina bifida, unspecified; Z98.84 Bariatric surgery status; I10 Essential (primary) hypertension; Z88.6 Allergy status to analgesic agent; Z91.040 Latex allergy status | CPT/HCPCS: 11042; A6402 ==

== ENCOUNTER 2016-11-09 13:49 | Outpatient (CLI) | payer MEDICARE | END 2016-11-09 23:59 | disposition home or self-care (01) | LOC: WOU 13:49 | PROVIDERS: ATTEND Podiatrist Foot & Ankle Surgery | DX: S91.114A Laceration without foreign body of right lesser toe(s) without damage to nail, initial encounter (principal); X58.XXXA Exposure to other specified factors, initial encounter; Y92.89 Other specified places as the place of occurrence of the external cause; G90.9 Disorder of the autonomic nervous system, unspecified; Z89.411 Acquired absence of right great toe; Z89.512 Acquired absence of left leg below knee | CPT/HCPCS: 11042; A6402 ==

== ENCOUNTER 2016-11-27 15:01 | Outpatient (CLI) | payer MEDICARE ==
[2016-11-27 16:57] LABS: CREATININE 0.9 mg/dL (0.6-1.3)
== END 2016-11-27 23:59 | disposition home or self-care (01) ==
LOC: WOU 15:01
PROVIDERS: ATTEND Surgery
DX: K43.9 Ventral hernia without obstruction or gangrene (principal); I10 Essential (primary) hypertension; Z98.84 Bariatric surgery status; R10.9 Unspecified abdominal pain; Z90.49 Acquired absence of other specified parts of digestive tract; Z89.512 Acquired absence of left leg below knee; Z87.891 Personal history of nicotine dependence; S81.802D Unspecified open wound, left lower leg, subsequent encounter; L08.9 Local infection of the skin and subcutaneous tissue, unspecified; X58.XXXD Exposure to other specified factors, subsequent encounter
CPT/HCPCS: 36415; 82565; 84520; G0463

== ENCOUNTER → 2016-12-01 | Outpatient (CLI) | payer MEDICARE ==
[~2016-12-01] MED LIST changes: +BARIUM SULFATE SUSP 450 ML BOTTLE PO ONE; +IOHEXOL-300 100 ML VIAL IV ONE; +IV NS 0.9% 250 ML IV ONE
== END ==
LOC: CT 12:22
PROVIDERS: ATTEND Surgery
DX: N28.1 Cyst of kidney, acquired (principal); K42.9 Umbilical hernia without obstruction or gangrene; Q76.49 Other congenital malformations of spine, not associated with scoliosis; Z90.710 Acquired absence of both cervix and uterus; Z98.84 Bariatric surgery status; Z90.49 Acquired absence of other specified parts of digestive tract
CPT/HCPCS: 74178; J7050; Q9967

== ENCOUNTER 2017-02-01 12:28 | Outpatient (CLI) | payer MEDICARE ==
[~2017-02-01 12:28] MED LIST changes: -BARIUM SULFATE SUSP 450 ML BOTTLE PO ONE; -IOHEXOL-300 100 ML VIAL IV ONE; -IV NS 0.9% 250 ML IV ONE
== END 2017-02-01 23:59 | disposition home or self-care (01) ==
LOC: WOU 12:28
PROVIDERS: ATTEND Podiatrist Foot & Ankle Surgery
DX: L60.0 Ingrowing nail (principal); Z89.512 Acquired absence of left leg below knee; Z88.6 Allergy status to analgesic agent; Z91.040 Latex allergy status
CPT/HCPCS: 11730

== ENCOUNTER 2017-02-15 14:28 | Outpatient (CLI) | payer MEDICARE | END 2017-02-15 23:59 | disposition home or self-care (01) | LOC: WOU 14:28 | PROVIDERS: ATTEND Surgery | DX: M65.331 Trigger finger, right middle finger (principal); Z89.512 Acquired absence of left leg below knee; F41.9 Anxiety disorder, unspecified; I10 Essential (primary) hypertension; K43.2 Incisional hernia without obstruction or gangrene; Z89.411 Acquired absence of right great toe; G62.9 Polyneuropathy, unspecified; Z90.710 Acquired absence of both cervix and uterus; Z90.49 Acquired absence of other specified parts of digestive tract; Z98.84 Bariatric surgery status; L97.909 Non-pressure chronic ulcer of unspecified part of unspecified lower leg with unspecified severity | CPT/HCPCS: G0463; J3301; J3490 ==

== ENCOUNTER 2017-11-15 10:23 | Outpatient (CLI) | payer MEDICARE, MEDICAID, OTHER ==
[~2017-11-15 10:23] MED LIST changes: +DOCU-141 PO; -DOCU-25 PO; -LEVO500T15 PO; +LEVO500T2 PO; +OXYC-132 PO; -OXYC-28 PO
== END 2017-11-15 23:59 | disposition home or self-care (01) ==
LOC: WOU 10:23
PROVIDERS: ATTEND Podiatrist Foot & Ankle Surgery
DX: L60.3 Nail dystrophy (principal); M79.671 Pain in right foot; L60.0 Ingrowing nail; Z89.512 Acquired absence of left leg below knee; Z79.899 Other long term (current) drug therapy; I10 Essential (primary) hypertension
CPT/HCPCS: G0463